=== PATIENT | male | born 1950 | race African-American/Black ===

== ENCOUNTER 2017-12-20 09:34 | Emergency (ER) | payer BC, MEDICARE ==
[2017-12-20] MEDS ORDERED: Nitroglycerin 2% Ointment 1 INCH/1 GM Packet ONE (10:19)
[2017-12-20 10:25] LABS: #Basophils 0.1 thou/uL (0.0-0.2); #Eosinphils 0.1 thou/uL (0.0-0.7); #Lymphocytes 1.4 thou/uL (1.20-3.40); #Monocytes 0.5 thou/uL (0.11-0.59); #Neutrophils 5.2 thou/uL (1.40-6.50); %Basophils 1.1 % (0.0-1.0); %Eosinophils 1.2 % (0.0-10.0); %Lymphocytes 18.9 % (21.0-51.0); %Monocytes 6.9 % (0.0-10.0); %Neutrophils 71.9 % (42.0-75.0); Hemoglobin 11.9 g/dL (14.0-18.0); Mean Corpuscular HGB CONC 31.8 g/dL (32.0-36.0); Mean Corpuscular Hemoglobin 30.7 pg (27.0-31.0); Mean Corpuscular Volume 96.4 fl (80.0-94.0); Mean Platelet Volume 6.8 fL (7.4-10.4); Platelet Count 246 thou/uL (130-400); RBC Distribution Width 11.6 % (11.5-14.5); Red Blood Cell (RBC) Count 3.87 mill/uL (4.70-6.10); White Blood Cell (WBC) Count 7.2 thou/uL (4.8-10.8)
[2017-12-20 10:31] LABS: PTT 31.6 SEC (22.9-36.1); Prothrombin Time 12.9 SEC (12.0-14.7)
--- NOTE | 2017-12-20 10:34 | RAD ---
PORTABLE AP CHEST XRAY: DATE: 12/20/17. HISTORY: Chest pain and hypertension. Abnormal EKG. COMPARISON: None available. FINDINGS: Cardiac silhouette is magnified by projection but is at the upper limits of normal to borderline enla rged. Pulmonary vasculature is within normal limits. Nodular densities project over each hilar yi on likely related to vascular structures. Lungs are otherwise clear. 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 IMPRESSION: No acute cardiopulmonary process. POS: JESSICA
[2017-12-20 10:41] LABS: CKMB 2.5 ng/mL (0-6.6); Troponin I 0.016 ng/mL (< 0.028)
[2017-12-20 10:44] LABS: ALT (SGPT) 13 U/L (8-55); AST (SGOT) 14 U/L (5-34); Albumin 3.9 g/dL (3.4-4.8); Alkaline Phosphatase 59 U/L (40-150); Anion Gap 15 mmol/L (10-20); BUN (Urea Nitrogen) 28 mg/dL (8.4-25.7); Bilirubin, Total 0.6 mg/dL (0.2-1.2); CK (CPK) 136 U/L (30-200); Calc. Creatinine Clearance 0 mL/min (70-130); Carbon Dioxide 24 mmol/L (23-31); Chloride 108 mmol/L (98-107); Estimated GFR-MDRD 61; Globulin 3.1 g/dL (2.4-3.5); Glucose 94 mg/dL (80-115); Potassium 4.5 mmol/L (3.5-5.1); Sodium 142 mmol/L (136-145)
[2017-12-20] MEDS ORDERED: Amlodipine 5 MG TAB ONE (12:12)
[2017-12-20] MEDS ORDERED: Hydrochlorothiazide 25 MG TAB ONE (12:13)
== END 2017-12-20 12:25 | disposition home or self-care (01) ==
LOC: NAV ERS 09:34
DX: I10 Essential (primary) hypertension (principal); R94.31 Abnormal electrocardiogram [ECG] [EKG]
CPT/HCPCS: 71045; 80053; 82550; 82553; 83735; 83880; 84484; 85025; 85610; 85730; 93005; 94760